=== PATIENT | female | born 1955 | race Native Hawaiian/Other Pacific Islander ===

== ENCOUNTER 2016-09-01 15:03 | Outpatient (CLI) | payer OTHER ==
[2016-09-01] MEDS ORDERED: SPIRONOLACT25 MG PO (15:26)
[2016-09-01] MEDS ORDERED: FUROSEMIDE20 MG PO (15:27)
[2016-09-01] MEDS ORDERED: GLIP10TA55 PO (15:27)
[2016-09-01] MEDS ORDERED: CARV12.5 PO (15:28)
[2016-09-01] MEDS ORDERED: GLYB PO (15:28)
[2016-09-01] MEDS ORDERED: METFORM PO (15:28)
[2016-09-01] MEDS ORDERED: ASPIRIN ADULT L81 MG PO (15:29)
[2016-09-01] MEDS ORDERED: FAMOTIDINE20 MG PO (15:29)
[2016-09-01] MEDS ORDERED: ALAVERT10 M2 PO (15:30)
[2016-09-01] MEDS ORDERED: LIPITOR80 MG PO (15:30)
[2016-09-01] MEDS ORDERED: CLOP75TA2 PO (15:31)
[2016-09-01] MEDS ORDERED: LISI20TA11 PO (15:32)
[2016-09-01] MEDS ORDERED: HUMALOG MI75 MG/25 K SC (15:33)
[2016-09-01] MEDS ORDERED: PROAIR HFA IN (15:33)
[2017-01-15] MEDS ORDERED: SENNA-S1 TAB PO (18:47)
[2017-01-15] MEDS ORDERED: LORTAB 7.5-3251 TAB PO (18:49)
== END 2016-09-01 15:10 | disposition short-term general hospital (02) ==
LOC: AMB 15:03
DX: E11.649 Type 2 diabetes mellitus with hypoglycemia without coma (principal)
CPT/HCPCS: A0425; A0427

== ENCOUNTER 2016-09-01 15:15 | Emergency (ER) | payer OTHER ==
[~2016-09-01] VITALS: Ht 152.4 cm; Wt 117.9 kg
[2016-09-01 15:12] VITALS: TEMP 97.5
[2016-09-01] MEDS ORDERED: SPIRONOLACT25 MG PO (15:26)
[2016-09-01] MEDS ORDERED: GLIP10TA55 PO (15:27)
[2016-09-01] MEDS ORDERED: FUROSEMIDE20 MG PO (15:27)
[2016-09-01] MEDS ORDERED: CARV12.5 PO (15:28)
[2016-09-01] MEDS ORDERED: METFORM PO (15:28)
[2016-09-01] MEDS ORDERED: GLYB PO (15:28)
[2016-09-01] MEDS ORDERED: ASPIRIN ADULT L81 MG PO (15:29)
[2016-09-01] MEDS ORDERED: FAMOTIDINE20 MG PO (15:29)
[2016-09-01] MEDS ORDERED: ALAVERT10 M2 PO (15:30)
[2016-09-01] MEDS ORDERED: LIPITOR80 MG PO (15:30)
[2016-09-01] MEDS ORDERED: CLOP75TA2 PO (15:31)
[2016-09-01] MEDS ORDERED: LISI20TA11 PO (15:32)
[2016-09-01] MEDS ORDERED: HUMALOG MI75 MG/25 K SC (15:33)
[2016-09-01] MEDS ORDERED: PROAIR HFA IN (15:33)
[2016-09-01 16:12] LABS: PLATELET COUNT 489 K/uL (152-353)
[2016-09-01 16:24] LABS: POTASSIUM 3.8 mmol/L (3.6-5.2)
[2016-09-01 16:45] VITALS: BP 129/74
[2017-01-15] MEDS ORDERED: SENNA-S1 TAB PO (18:47)
[2017-01-15] MEDS ORDERED: LORTAB 7.5-3251 TAB PO (18:49)
== END 2016-09-01 19:08 | disposition home or self-care (01) ==
LOC: ED 15:15
DX: E11.649 Type 2 diabetes mellitus with hypoglycemia without coma (principal); R41.82 Altered mental status, unspecified
CPT/HCPCS: 36415; 80053; 82947; 82962; 83036; 85027; 99283

== ENCOUNTER 2016-12-19 09:30 | Outpatient (CLI) | payer OTHER ==
[~2016-12-19 09:30] MED LIST: ALAVERT10 M2 PO; ASPIRIN ADULT L81 MG PO; CARV12.5 PO; CLOP75TA2 PO; FAMOTIDINE20 MG PO; FUROSEMIDE20 MG PO; GLIP10TA55 PO; GLYB PO; HUMALOG MI75 MG/25 K SC; LIPITOR80 MG PO; LISI20TA11 PO; METFORM PO; PROAIR HFA IN; SPIRONOLACT25 MG PO
[2017-01-15] MEDS ORDERED: SENNA-S1 TAB PO (18:47)
[2017-01-15] MEDS ORDERED: LORTAB 7.5-3251 TAB PO (18:49)
== END 2016-12-19 12:00 | disposition home or self-care (01) ==
LOC: US 09:30
DX: R09.89 Other specified symptoms and signs involving the circulatory and respiratory systems (principal); I10 Essential (primary) hypertension
CPT/HCPCS: 93306

== ENCOUNTER 2016-12-29 14:49 | Outpatient (CLI) | payer OTHER ==
[2016-12-29 15:10] VITALS: BP 117/57; TEMP 98
[2017-01-15] MEDS ORDERED: SENNA-S1 TAB PO (18:47)
[2017-01-15] MEDS ORDERED: LORTAB 7.5-3251 TAB PO (18:49)
== END 2016-12-29 16:50 | disposition home or self-care (01) ==
LOC: INF 14:49
DX: E86.0 Dehydration (principal)
CPT/HCPCS: 96360

== ENCOUNTER 2017-01-30 14:44 | Observation (INO) | payer OTHER ==
[~2017-01-30] VITALS: Ht 167.6 cm; Wt 88.5 kg
[~2017-01-30 14:44] MED LIST changes: +LORTAB 7.5-3251 TAB PO; +SENNA-S1 TAB PO
[2017-01-30 16:10] LABS: POTASSIUM 4.5 mmol/L (3.6-5.2)
[2017-01-30 21:00] VITALS: BP 150/76; TEMP 98.6
[2017-01-30 22:46] VITALS: BP 150/76; TEMP 98.6; Ht 167.6 cm; Wt 88.5 kg
[2017-01-30] MEDS ORDERED: VALSARTAN80 MG PO (23:27)
[2017-01-30] MEDS ORDERED: ASPIR-8181 MG PO (23:32)
[2017-01-30] MEDS ORDERED: BUDE1AER5 INH (23:42)
[2017-01-30] MEDS ORDERED: TRULICITY0.75 MG/0. SC (23:45)
[2017-01-30 23:53] VITALS: BP 98/49; TEMP 98.3
[2017-01-31 04:00] VITALS: BP 94/52; TEMP 98.5
[2017-01-31 08:00] VITALS: BP 96/42; TEMP 99.1
[2017-01-31 08:43] LABS: PLATELET COUNT 498 K/uL (152-353)
--- NOTE | 2017-01-31 08:47 | NUR ---
LEFT MESSAGE REGARING LAB RESULTS AND SCAN RESULTS ON PATIENT.
--- NOTE | 2017-01-31 08:54 | NUR ---
DR BIRD CALLED STATING EMA HER NURSE CALLED [facility] YESTERDAY BUT NO BED AVAILABLE. INFORMED HER I WAS UNAWARE OF PATIENT TO BE TRANSFERRED WILL CALL [facility] TRANSFER [facility] FOR UPDATE.
--- NOTE | 2017-01-31 09:20 | NUR ---
SPOKE WITH EMERALD AT TRANSFER CENTER REGARDING BED ASSIGNMENT FOR PATIENT. SHE STATED THAT 45MINS PRIOR TO MY CALL THAT OFFICE CANCELLED TRANSFER. CALLED DR BIRD @ [id number] TRANSFER CENTER STATEMENT. STATED OK THANKS.
--- NOTE | 2017-01-31 09:30 | NUR ---
DR BIRD STATED OFFICE RECALLING TRANSFER CENTER AT THIS TIME.
--- NOTE | 2017-01-31 10:15 | NUR ---
DR BIRD CALLED REGARDING BED ASSIGNMENT INFORMED HER THAT TRANSFER CENTER ON LINE NOW STATING WAITING LIST FOR BEDS. STATED OK. ORDER RECEIVED TO GIVE PATIENT FOOD OR DRINK WHATEVER SHE WANTS.
--- NOTE | 2017-01-31 12:20 | NUR ---
PT STATED IV SITE L AC 20G TENDER. IV OSBERVED PARTIALLY OUT OF SKIN; CATHETER TOO FAR OUT OF VEIN TO READVANCE. IV RESTARTED TO R FA 20G.
[2017-01-31 12:24] VITALS: BP 101/39; TEMP 98.4
--- NOTE | 2017-01-31 12:30 | NUR ---
PT WITH C/O OF HEMMORRHOID PAIN. NEW ORDER RECEIVED FROM DR BIRD FOR ANUSOL OR PROTOCOFOAM.
--- NOTE | 2017-01-31 12:40 | NUR ---
UPDATED DR BIRD STILL NO BED AVAILABILITY AT THIS TIME
--- NOTE | 2017-01-31 15:00 | NUR ---
UPDATED DR BIRD NO BED AVAILABILITY AT THIS TIME
[2017-01-31 16:13] VITALS: BP 105/46; TEMP 98.8
--- NOTE | 2017-01-31 16:48 | NUR ---
TRANSFER CENTER INFORMED ROOM ASSIGNMENT GIVEN FOR PATIENT TO ROOM 689.
--- NOTE | 2017-01-31 16:50 | NUR ---
LEFT MESSAGE WITH DR BIRD STATING BED ASSIGNMENT GIVEN AND NEEDING [facility] TRANSFER PAPERWORK SIGNED.
--- NOTE | 2017-01-31 16:50 | NUR ---
SPOKE WITH CAROLINA AGUDELO RN. REPORT GIVEN ON PATIENT. EMS AT FACILITY TO TRANSPORT PATIENT.
--- NOTE | 2017-01-31 17:00 | NUR ---
EMS NOTIFIED PATIENT READY TO GO AWAITING SIGNATURE FROM MD.
--- NOTE | 2017-01-31 17:55 | NUR ---
DR BIRD LEFT MESSAGE STATING WILL BE AWHILE BEFORE SHE CAN COME TO SIGN. INFORMED HER THAT DR BEACH WAS ASKED PER [facility] FOR SIGNATURE OF FORMS HE STATED WOULD SIGN AFTER HE WAS OUT OF SURGERY.
--- NOTE | 2017-01-31 18:30 | NUR ---
INFORMED DR BIRD THAT DR BEACH HAS SIGNED PAPERWORK AND AWAITING EMS FOR TRANSPORT
--- NOTE | 2017-01-31 19:17 | NUR ---
EMS AT FACILITY TRANSPORTING PATIENT VIA STRETCHER. CAROLYN ARAGON PCT AT TO ASSIST.
--- NOTE | 2017-01-31 20:54 | NUR ---
PT DID NOT RECIEVE 20:00 TX DUE TO PATIENT HAD BEEN TRANSFERED TO [facility]
== END 2017-01-31 19:25 | disposition short-term general hospital (02) ==
LOC: INF 14:44 → MED/SURG 19:45
PROVIDERS: ADMIT Family Medicine
DX: E86.0 Dehydration (principal); J44.1 Chronic obstructive pulmonary disease with (acute) exacerbation; R91.8 Other nonspecific abnormal finding of lung field
CPT/HCPCS: 36415; 80053; 81000; 82948; 85027; 87040; 94640; 94664; 94760; 96360; 96361; 99220; G0378; J2405

== ENCOUNTER 2017-01-31 19:26 | Outpatient (CLI) | payer OTHER ==
[~2017-01-31 19:26] MED LIST changes: +ASPIR-8181 MG PO; +BUDE1AER5 INH; +TRULICITY0.75 MG/0. SC; +VALSARTAN80 MG PO
== END 2017-01-31 20:58 | disposition short-term general hospital (02) ==
LOC: AMB 19:26
DX: E86.0 Dehydration (principal); J44.1 Chronic obstructive pulmonary disease with (acute) exacerbation; R91.8 Other nonspecific abnormal finding of lung field
CPT/HCPCS: A0425; A0427